=== PATIENT | male | born 1995 | race Two or more races ===

== ENCOUNTER 2018-06-04 22:53 | Emergency (ER) | payer MEDICAID ==
[~2018-06-04] VITALS: Ht 182.9 cm; Wt 72.6 kg
[2018-06-04 23:35] VITALS: BP 122/63
[2018-06-05] MEDS ORDERED: LIDOCAINE VISCOUS 2% 15ML UD MT ONE (02:30)
[2018-06-05] MEDS ORDERED: DexAMETHasone SOD PHOS 10MG/1ML VIAL INJ IM ONE (02:30)
[2018-06-05] MEDS ORDERED: ALUM & MAG HYDROX-SIMETH LIQ(MAALOX) 30 ML PO ONE (02:30)
== END 2018-06-05 06:08 | disposition home or self-care (01) ==
LOC: ER 22:53
DX: J06.9 Acute upper respiratory infection, unspecified (principal); J02.9 Acute pharyngitis, unspecified
CPT/HCPCS: 70360; 96372; 99283; J1100